=== PATIENT | female | born 1995 | race Caucasian/White ===

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

== ENCOUNTER 2017-04-18 19:21 | Emergency (ER) | payer MEDICAID ==
[2017-04-18 19:44] VITALS: TEMP 99
[2017-04-18] MEDS ORDERED: DEXAMETHASONE 10 MG/ML VIAL IVP ONE (20:01)
[2017-04-18] MEDS ORDERED: METOCLOPRAMIDE 10 MG/2 ML VIAL IVP ONE (20:01)
[2017-04-18] MEDS ORDERED: NS 1,000 ML IV ONE (20:01)
[2017-04-18] MEDS ORDERED: ACETAMINOPHEN 500 MG TAB PO ONE (21:32)
--- NOTE | 2017-04-18 21:36 | EDPHY ---
H & P Stated Complaint: headache for 4 days Time Seen by Provider: 04/18/17 19:46 HPI/ROS: This patient describes a frontal headache of 4 days duration that is described as severe achy and sharp in nature associated with photophobia. She has never had this type headache before. She tried aspirin and Tylenol yesterday without relief and has not tried any medications today. She denies any other associated symptoms. She is accompanied by her father who brought her in by private vehicle for evaluation of her symptoms. ROS: Constitutional: No fevers. No fatigue. No other constitutional complaints HEENT: Chest minimal coryza since this morning but denies any feeling of sinus pressure. No ear pain. No sore throat. Pulmonary: No complaints Cardiovascular: No lightheadedness or other complaints GI: She denies nausea or vomiting. No belly pain. : No complaints new line integumentary: No rash Neuro: No numbness tingling or focal weakness. No confusion. No vision changes. 7 point ROS is otherwise negative. Source: Patient Exam Limitations: No limitations - Personal History Current Tetanus Diphtheria and Acellular Pertussis (TDAP): Yes Tetanus Vaccine Date: 2011 - Medical/Surgical History Hx Asthma: No Hx Chronic Respiratory Disease: No Hx Diabetes: No Hx Cardiac Disease: No Hx Renal Disease: No Hx Cirrhosis: No Hx Alcoholism: No Hx HIV/AIDS: No Hx Splenectomy or Spleen Trauma: No Other PMH: Autistic spectrum disorder, Acid reflux, anxiety, frequent ear infections, ear tubes, asthma - Family History Significant Family History: No pertinent family hx - Social History Smoking Status: Never smoked Alcohol Use: None Drug Use: None - Physical Exam Exam: Physical exam: Vital signs are normal General: Patient is in no acute distress. HEENT: Is no external evidence of trauma on exam. Eyes: Pupils are equal and reactive to light. Extraocular motions are intact. Optic fundi: Clear with no papilledema or hemorrhage. Nose atraumatic. Ears: Clear bilaterally with no hemotympanum. Oropharynx: No dental trauma or malocclusion. No intraoral lacerations. Eyes: Pupils are equal and reactive to light. Extraocular motions are intact. Optic fundi: Clear with no papilledema or hemorrhage. Lungs: Clear to auscultation bilaterally Neck: Supple no meningismus. Cardiac: Regular rate and rhythm no murmur gallop or rub. Abdomen: Soft nontender no organomegaly Neuro: GCS of 15. Cranial nerves II through XII intact. Cerebellar exam is normal as judged by symmetric rapid hand movements bilaterally. No pronator drift. No sensory or motor deficits are appreciated. Initial differential diagnosis: Migraine, tension headache, [employer] lesion, intracranial bleed Constitutional: Initial Vital Signs Temperature (C) 37.2 C 04/18/17 19:35 Heart Rate 107 H 04/18/17 19:35 Respiratory Rate 20 04/18/17 19:35 Blood Pressure 126/88 H 04/18/17 19:35 O2 Sat (%) 97 04/18/17 19:35 O2 Delivery Mode Room Air Allergies/Adverse Reactions: aspirin Allergy (Severe, Verified 04/18/17 19:34) Swelling/neck,face,throat ibuprofen Allergy (Severe, Verified 04/18/17 19:34) Swelling/neck,face,throat venom-honey bee [bee venom (honey bee)] Allergy (Intermediate, Verified 19:34) Other-Enter Comments Home Medications: Medication Instructions Recorded SUMAtriptan [Imitrex 50 MG (RX)] 50 - 100 mg PO Q2H PRN #6 tab 04/18/17 Medical Decision Making ED Course/Re-evaluation: A noted the patient's NSAID allergy IV is placed Normal saline bolus Reglan and Benadryl IV, Tylenol p.o. With marked improvement in her headache down to mild intensity. Discussion: Given patient's significant improvement with migraine medications long with the nature of her symptoms think it is likely that she had a migraine type headache though she has not had enough prior headaches to formally diagnosed her is migraine. Acute counseled her and her father regarding this. Time discharge she is comfortable. Will tx this pt. with a trial of Imitrex. She will follow up with Neurology for further evaluation. She understands need to return should she have any significant worsening despite treatment plan - Data Points Medications Given: Discontinued Medications Acetaminophen (Tylenol) 1,000 mg PO EDNOW ONE Stop: 04/18/17 21:33 Last Admin: 04/18/17 21:41 Dose: 1,000 mg Dexamethasone (Decadron Injection) 10 mg IVP EDNOW ONE Stop: 04/18/17 20:02 Last Admin: 04/18/17 20:19 Dose: 10 mg Diphenhydramine HCl (Benadryl Injection) 25 mg IVP EDNOW ONE Stop: 04/18/17 20:02 Last Admin: 04/18/17 20:17 Dose: 25 mg Sodium Chloride (Ns) 1,000 mls @ 0 mls/hr IV ONCE ONE; Wide Open PRN Reason: Protocol Stop: 04/18/17 20:02 Last Admin: 04/18/17 20:20 Dose: 1,000 mls Metoclopramide HCl (Reglan Injection) 10 mg IVP EDNOW ONE Stop: 04/18/17 20:02 Last Admin: 04/18/17 20:18 Dose: 10 mg Sumatriptan Succinate (Imitrex) 50 mg PO EDNOW ONE Stop: 04/18/17 21:48 Last Admin: 04/18/17 21:57 Dose: Not Given Departure - Departure Disposition: Home, Routine, Self-Care Clinical Impression: Acute headache Qualifiers: Headache type: unspecified Intractability: not intractable Qualified Code(s): R51 - Headache Condition: Good Instructions: Migraine Headache (ED) Additional Instructions: Diagnosis: Acute headache Your headache is migraine-like. Official migraine diagnosis requires more episodes to establish pattern. Plan: She have a recurrent headache, take Tylenol, Imitrex and find quite place to rest. Follow-up with primary care physician. Follow up with neurologist for further evaluation for any ongoing headaches Return to the emergency department for any significant worsening despite treatment plan Referrals: JIN DAVIES [Other] - As per Instructions Brandon Smiley MD [Medical Doctor] - As per Instructions Prescriptions: SUMAtriptan [Imitrex 50 MG (RX)] 50 - 100 mg PO Q2H PRN #6 tab PRN Reason: migraine
[2017-04-18] MEDS ORDERED: SUMAtriptan 50 MG TAB PO ONE (21:47)
[2017-04-18 22:46] VITALS: BP 122/84; PULSE 96; RESP 18; O2SAT 96
== END 2017-04-18 21:50 | disposition home or self-care (01) ==
LOC: CED 19:21
DX: R51 Headache (principal); J45.909 Unspecified asthma, uncomplicated; E86.9 Volume depletion, unspecified
CPT/HCPCS: 96374; J1100; J1200; J2765

== ENCOUNTER 2017-04-29 20:00 | Emergency (ER) | payer MEDICAID ==
[2017-04-29 20:12] VITALS: BP 130/83; PULSE 110; RESP 20; TEMP 98.4; O2SAT 97
[2017-04-29] MEDS ORDERED: diphenhydrAMINE 25 MG CAP PO ONE (20:23)
[2017-04-29] MEDS ORDERED: FAMOTIDINE 20 MG TAB PO ONE (20:40)
[2017-04-29] MEDS ORDERED: ONDANSETRON DISINTEGRATING 4 MG TAB PO ONE (20:41)
--- NOTE | 2017-04-29 20:49 | EDPHY ---
H & P Time Seen by Provider: 04/29/17 20:34 HPI/ROS: This patient complains of an itchy red rash to her face that started at 4:15 a.m. Today. She also describes slight nausea without other symptoms. The patient takes melatonin at night for sleep but no other supplements or other obvious potential allergen exposure recently. She has not taken any medications for her rash. Her father brought her in by private vehicle for evaluation of the symptoms. She notes no clear exacerbating or alleviating factors. ROS: Constitutional: No fevers or chills. No other complaints HEENT: No URI symptoms. Pulmonary: No shortness of breath or wheeze. Cardiovascular: No heart palpitations or lightheadedness. GI: No abdominal pain. No vomiting. No diarrhea. : No complaints integumentary: No rash other than the rash on her face. No intraoral lesions 7 point ROS is otherwise negative. Past Medical/Surgical History: Migraines High functioning autistic spectrum GERD Smoking Status: Never smoked Physical Exam: General Appearance: Alert, no distress. Eyes: Pupils equal and round no pallor or injection. ENT, Mouth: Mucous membranes moist. No angioedema. No intraoral lesions. Respiratory: There are no retractions, lungs are clear to auscultation. Cardiovascular: Regular rate and rhythm. Gastrointestinal: Abdomen is soft and nontender, no masses, bowel sounds normal. Neurological: GCS 15 Skin: She has an erythematous papular rash or face that ingrid easily with pressure is symmetric bilaterally. Musculoskeletal: Neck is supple nontender. Extremities are symmetrical, full range of motion. Psychiatric: Mood and affect are normal DIFFERENTIAL DIAGNOSIS: After history and physical exam differential diagnosis was considered for allergic urticaria, doubt lupus rash, contact dermatitis Constitutional: Initial Vital Signs Temperature (C) 36.9 C 04/29/17 20:07 Heart Rate 110 H 04/29/17 20:07 Respiratory Rate 20 04/29/17 20:07 Blood Pressure 130/83 H 04/29/17 20:07 O2 Sat (%) 97 04/29/17 20:07 O2 Delivery Mode Room Air Allergies/Adverse Reactions: aspirin Allergy (Severe, Verified 04/18/17 19:34) Swelling/neck,face,throat ibuprofen Allergy (Severe, Verified 04/18/17 19:34) Swelling/neck,face,throat venom-honey bee [bee venom (honey bee)] Allergy (Intermediate, Verified 19:34) Other-Enter Comments Home Medications: Medication Instructions Recorded SUMAtriptan [Imitrex 50 MG (RX)] 50 - 100 mg PO Q2H PRN #6 tab 04/18/17 Depo-Provera 150 mg/ml (*) 04/29/17 Ondansetron Odt [Zofran Odt] 4 - 8 mg PO Q4PRN PRN #4 tab 04/29/17 MDM/Departure - MDM Medications Given: Discontinued Medications Diphenhydramine HCl (Benadryl) 25 mg PO EDNOW ONE Stop: 04/29/17 20:24 Last Admin: 04/29/17 20:27 Dose: 25 mg Famotidine (Pepcid) 40 mg PO EDNOW ONE Stop: 04/29/17 20:41 Last Admin: 04/29/17 20:44 Dose: 40 mg Ondansetron HCl (Zofran Odt) 4 mg PO EDNOW ONE Stop: 04/29/17 20:42 Last Admin: 04/29/17 20:44 Dose: 4 mg ED Course/Re-evaluation: Benadryl and Pepcid p. O.. I counseled patient and father regarding allergic urticaria. She does not have evidence of anaphylaxis or other"red flag findings". She will follow up with her primary care physician and/or Dr. Quiñones-peeler operator for any ongoing symptoms. She understands need to return emergency department for any significant worsening despite treatment plan. - Depart Disposition: Home, Routine, Self-Care Clinical Impression: Allergic urticaria Condition: Good Instructions: Urticaria (ED) Additional Instructions: Diagnosis: Allergic urticaria Plan: Weljfoky-[id number] mg per 6 hr as needed for itching or rash Pepcid 40 mg daily Zofran if needed for nausea or vomiting Follow up with Dr. Quiñones-peeler operator for further testing. Avoid pears Return for any significant worsening despite treatment plan Prescriptions: Ondansetron Odt [Zofran Odt] 4 - 8 mg PO Q4PRN PRN #4 tab PRN Reason: Vomiting Referrals: [facility],CAMPASINA [Other] - As per Instructions Harman QUIÑONES [Medical Doctor] - As per Instructions
== END 2017-04-29 20:55 | disposition home or self-care (01) ==
LOC: CED 20:00
DX: L50.0 Allergic urticaria (principal)

== ENCOUNTER 2017-08-13 15:11 | Emergency (ER) | payer MEDICAID ==
[2017-08-13] MEDS ORDERED: FAMOTIDINE 20 MG/2 ML SDV IVP ONE (15:18)
[2017-08-13] MEDS ORDERED: NS 1,000 ML IV ONE (15:18)
[2017-08-13] MEDS ORDERED: methylPREDNISolone SOD SUCC 125 MG/2 ML VIAL IVP ONE (15:18)
--- NOTE | 2017-08-13 15:19 | EDPHY ---
H & P Time Seen by Provider: 08/13/17 15:13 HPI/ROS: 21 yo F presents with slight swelling and redness to face and itching around eyes, no difficulty swallowing, no resp distress, no wheezing. Pt and parent state it began about 30 minutes after taking excedrin migraine, and then they realized it has aspirin in it and that she may be allergic to aspirin. Review of systems As per HPI General no fever no chills no weakness HEENT no eye pain no eye discharge. No eye redness, no sore throat Respiratory no cough, no shortness of breath Cardiac no chest pain, no peripheral edema GI no abdominal pain, no diarrhea, no constipation, no nausea, no vomiting no flank pain, no hematuria, no dysuria Musculoskeletal no myalgias, no joint pain Heme no easy bruising, no easy bleeding Endo no polyuria, no polydipsia Skin positive rashes, no pruritus Neuro no syncope, no dizziness, no headaches Psych is no suicidal ideation, no homicidal ideation Source: Patient, Family Exam Limitations: Other (autism) - Personal History Current Tetanus/Diphtheria Vaccine: Yes Tetanus Vaccine Date: 2011 - Medical/Surgical History Hx Asthma: No Hx Chronic Respiratory Disease: No Hx Diabetes: No Hx Cardiac Disease: No Hx Renal Disease: No Hx Cirrhosis: No Hx Alcoholism: No Hx HIV/AIDS: No Hx Splenectomy or Spleen Trauma: No Other PMH: Autistic spectrum disorder, Acid reflux, anxiety, frequent ear infections, ear tubes, asthma - Family History Significant Family History: No pertinent family hx - Social History Smoking Status: Never smoked Alcohol Use: None Drug Use: None - Physical Exam Exam: 21 yo F alert and oriented in nad no resp distress HEENT atraumatic normocephalic, extraocular muscles intact, anicteric Oropharynx negative for erythema negative exudate, tolerating her own secretions no uvular edema Neck supple no meningismus, no stridor Lungs clear to auscultation bilaterally, no wheezing Heart regular rate and rhythm without murmur rub or gallop Abdomen nondistended normoactive bowel sounds soft nontender Back no CVA tenderness, no step-offs, no spinal tenderness Extremities no cyanosis clubbing or edema Neuro alert and oriented, no focal deficits skin mild erythema and swelling periorbitally and face no lip swelling no uvular swelling Constitutional: Initial Vital Signs Temperature (C) 36.3 C 08/13/17 15:16 Heart Rate 116 H 08/13/17 15:16 Respiratory Rate 18 08/13/17 15:16 Blood Pressure 146/102 H 08/13/17 15:16 O2 Sat (%) 97 08/13/17 15:16 O2 Delivery Mode Room Air Allergies/Adverse Reactions: aspirin Allergy (Severe, Verified 08/13/17 15:19) Swelling/neck,face,throat ibuprofen Allergy (Severe, Verified 08/13/17 15:19) Swelling/neck,face,throat venom-honey bee [bee venom (honey bee)] Allergy (Intermediate, Verified 15:19) Other-Enter Comments Home Medications: Medication Instructions Recorded Depo-Provera 150 mg/ml (*) 04/29/17 Famotidine [Pepcid] 20 mg PO BID 4 Days #8 tablet 08/13/17 predniSONE 40 mg PO DAILY 4 Days tab 08/13/17 Medical Decision Making ED Course/Re-evaluation: Patient seen and evaluated for allergic reaction to likely secondary to aspirin IV established Patient given diphenhydramine 25 mg IV push, famotidine 20 mg IV push, Solu- Medrol 125 mg IV push. Patient had taken 25 mg Benadryl prior to arrival Patient observed for approximately 90 min with marked improvement of erythema, swelling and symptoms. Impression Allergic reaction Plan Discharge home Education regarding avoiding all nonsteroidal anti-inflammatory drugs such as aspirin, ibuprofen, Aleve, Advil, Motrin, Advil, naproxen And of course all aspirin products Follow-up with primary care physician Recommend diphenhydramine Q 6 hr for 1st 24 hr post exposure, famotidine 20 mg p. O. Twice daily x4 days, prednisone 40 mg p.o. Daily x4 days beginning tomorrow Differential Diagnosis: Differential diagnosis considered but not limited to: Allergic reaction, cellulitis - Data Points Medications Given: Discontinued Medications Diphenhydramine HCl (Benadryl Injection) 25 mg IVP EDNOW ONE Stop: 08/13/17 15:19 Last Admin: 08/13/17 15:32 Dose: 25 mg Famotidine (Pepcid) 20 mg IVP EDNOW ONE Stop: 08/13/17 15:19 Last Admin: 08/13/17 15:33 Dose: 20 mg Sodium Chloride (Ns) 1,000 mls @ 0 mls/hr IV ONCE ONE PRN Reason: Wide Open Stop: 08/13/17 15:19 Last Admin: 08/13/17 15:29 Dose: 1,000 mls Methylprednisolone Sodium Succinate (Solu-Medrol) 125 mg IVP EDNOW ONE Stop: 08/13/17 15:19 Last Admin: 08/13/17 15:33 Dose: 125 mg Departure - Departure Disposition: Home, Routine, Self-Care Clinical Impression: Allergic reaction Condition: Good Instructions: General Allergic Reaction (ED) Additional Instructions: 1) Avoid all aspirin or non steroidal antiiflammatory medicines like ibuprofen, naproxen, advil, motrin, alleve 2) Diphenhydramine or Benadryl every 6 hours for first 24 hours after exposure for any hives, itching or swelling 3) No hot showers, baths, or heat exposure for the next 24 hours 4) Prednisone once a day for 4 days 5) Famotidine twice a day for 4 days 6) Follow up with you primary care Referrals: LAUREN DAVIES [Other] - As per Instructions Prescriptions: Famotidine [Pepcid] 20 mg PO BID 4 Days #8 tablet predniSONE 40 mg PO DAILY 4 Days tab
[2017-08-13 16:38] VITALS: BP 133/79
== END 2017-08-13 17:04 | disposition home or self-care (01) ==
LOC: CED 15:11
DX: T78.40XA Allergy, unspecified, initial encounter (principal)
CPT/HCPCS: 96374; J1200; J2930

== ENCOUNTER 2017-11-09 13:39 | Emergency (ER) | payer OTHER, MEDICAID ==
--- NOTE | 2017-11-09 14:14 | EDPHY ---
H & P Smoking Status: Never smoked Time Seen by Provider: 11/09/17 14:08 HPI/ROS: Chief complaint. Headache HPI. Patient presents with 4 day frontal headache. Gradual onset and not thunderclap. It is not associated with nausea and vomiting. She has had similar symptoms previously successfully treated with Reglan and Benadryl and Tylenol. She is allergic to aspirin and ibuprofen which causes facial swelling. She also has slight sore throat. No fever. No chest discomfort or trouble breathing. No cough. No recent head injury. Symptoms are similar to her previous headache in March 2017. She tells me she does get frequent headaches and generally is able to treat these with Tylenol. ROS 10 systems were reviewed and negative with the exception of the elements mentioned in the history of present illness (Tyrone Newton) Past Medical/Surgical History: A to stick spectrum disorder, GERD, anxiety frequent ear infections, asthma, migraines (Tyrone Newton) Social History: Single, nonsmoker, no alcohol (Tyrone Newton) Physical Exam: General Appearance: Alert well-developed female mild distress vital signs are stable. Eyes: Pupils equal and round no pallor or injection. ENT, tympanic membranes are normal. Pharynx slightly injected without exudate or evidence of peritonsillar abscess. Respiratory: There are no retractions, lungs are clear to auscultation. Cardiovascular: Regular rate and rhythm. Gastrointestinal: Abdomen is soft and nontender, no masses, bowel sounds normal. Neurological: Awake and alert, sensory and motor exams grossly normal. Skin: Warm and dry, no rashes. Musculoskeletal: Neck is supple nontender. Extremities symmetrical, full range of motion. Psychiatric: Patient is oriented X 3, there is no agitation. (Tyrone Newton) Constitutional: Initial Vital Signs Temperature (C) 37.3 C 11/09/17 13:48 Heart Rate 93 11/09/17 13:48 Respiratory Rate 16 11/09/17 13:48 Blood Pressure 109/90 H 11/09/17 13:48 O2 Sat (%) 98 11/09/17 13:48 O2 Delivery Mode Room Air Allergies/Adverse Reactions: aspirin Allergy (Severe, Verified 08/13/17 15:19) Swelling/neck,face,throat ibuprofen Allergy (Severe, Verified 08/13/17 15:19) Swelling/neck,face,throat venom-honey bee [bee venom (honey bee)] Allergy (Intermediate, Verified 15:19) Other-Enter Comments Home Medications: Medication Instructions Recorded Depo-Provera 150 mg/ml (*) 04/29/17 Famotidine [Pepcid] 20 mg PO BID 4 Days #8 tablet 08/13/17 predniSONE 40 mg PO DAILY 4 Days tab 08/13/17 Ondansetron Odt [Zofran Odt] 4 - 8 mg PO Q4PRN PRN #4 tab 11/09/17 SUMAtriptan [Imitrex 50 MG (RX)] 50 - 100 mg PO Q2H PRN #6 tab 11/09/17 Medical Decision Making Procedures: IV normal saline. Reglan and Benadryl IV. Tylenol by mouth (Tyrone Newton) ED Course/Re-evaluation: At 3:50 p.m. The patient feels improved after medications with headache down to 3 or 4/10. She still however has mild to moderate nausea that persists. Repeat examination-patient is no distress. Neuro: GCS 15 with no focal deficits. Eyes: Pupils equal react to light extraocular is intact optic fundi are normal bilaterally Discussion: Patient presents with migraine type headache improved with treatment without any red flag findings that suggest [employer] infection, intracranial bleed or other concerning findings. Patient understands need to return emergency department should she develop significant worsening despite treatment plan of ibuprofen, Tylenol, Zofran Imitrex (Mike Pedraza) - Data Points Medications Given: Discontinued Medications Acetaminophen (Tylenol) 1,000 mg PO EDNOW ONE Stop: 11/09/17 14:22 Last Admin: 11/09/17 14:43 Dose: 1,000 mg Diphenhydramine HCl (Benadryl Injection) 25 mg IVP EDNOW ONE Stop: 11/09/17 14:21 Last Admin: 11/09/17 14:48 Dose: 25 mg Metoclopramide HCl (Reglan Injection) 10 mg IVP EDNOW ONE Stop: 11/09/17 14:21 Last Admin: 11/09/17 14:45 Dose: 10 mg Departure - Departure Disposition: Home, Routine, Self-Care Clinical Impression: Migraine Qualifiers: Migraine type: unspecified Status migrainosus presence: with status migrainosus Intractability: not intractable Qualified Code(s): G43.901 - Migraine, unspecified, not intractable, with status migrainosus Vomiting Qualifiers: Vomiting type: unspecified Vomiting Intractability: non-intractable Nausea presence: with nausea Qualified Code(s): R11.2 - Nausea with vomiting, unspecified Condition: Good Instructions: Migraine Headache (ED), Acute Nausea and Vomiting (ED) Additional Instructions: Diagnosis: Migraine headache 2. Vomiting Plan: Drink plenty fluids Light diet to feel improved Zofran for nausea vomiting Ibuprofen, and Tylenol for headache. Imitrex in addition if needed. Follow up with your primary care physician at [facility] Return for any significant worsening despite the treatment plan. Referrals: JIN DAVIES [Other] - As per Instructions
[2017-11-09] MEDS ORDERED: METOCLOPRAMIDE 10 MG/2 ML VIAL IVP ONE (14:20)
[2017-11-09] MEDS ORDERED: ACETAMINOPHEN 500 MG TAB PO ONE (14:21)
[2017-11-09] MEDS ORDERED: ONDANSETRON 4 MG/2 ML VIAL IVP ONE (15:50)
[2017-11-09 16:33] VITALS: BP 120/83
== END 2017-11-09 16:19 | disposition home or self-care (01) ==
LOC: CED 13:39
DX: G43.901 Migraine, unspecified, not intractable, with status migrainosus (principal); R11.2 Nausea with vomiting, unspecified
CPT/HCPCS: 96374; 96375; 99284; J1200; J2765; J2405

== ENCOUNTER 2018-03-30 16:59 | Emergency (ER) | payer OTHER, MEDICAID ==
[2018-03-30] MEDS ORDERED: NS 1,000 ML IV ONE (17:39)
--- NOTE | 2018-03-30 19:29 | EDPHY ---
H & P Stated Complaint: PT. states abd pain since yesterday 1530,nausea,diarrhea 2 days ago Time Seen by Provider: 03/30/18 17:15 HPI/ROS: CHIEF COMPLAINT: Abdominal pain, black stools History by patient HISTORY OF PRESENT ILLNESS: 22-year-old otherwise healthy woman presents complaining of 2 days of epigastric and periumbilical pain. Symptoms began with some diarrhea yesterday. For this she took Pepto-Bismol. Today she noticed black stools. She has had some nausea but no vomiting and she has had a decreased appetite, the food does not necessarily make her symptoms worse. She denies any fever. She denies . She has the Depo shot, and has been on time for this. She denies any dysuria, urgency frequency or hematuria. She denies any back pain. She also notes she is under lots of stress because her family is getting kicked out of there house. She does state she has had similar symptoms in the past. REVIEW OF SYSTEMS: As in HPI, and all other systems reviewed and are negative Source: Patient, Family - Personal History LMP (Females 10-55): Extended Cycle BCP/Inj Tetanus Vaccine Date: 2011 - Medical/Surgical History Hx Asthma: Yes Hx Chronic Respiratory Disease: No Hx Diabetes: No Hx Cardiac Disease: No Hx Renal Disease: No Hx Cirrhosis: No Hx Alcoholism: No Hx HIV/AIDS: No Hx Splenectomy or Spleen Trauma: No Other PMH: Autistic spectrum disorder, Acid reflux, anxiety, frequent ear infections, ear tubes, asthma, migraines - Social History Smoking Status: Never smoked - Physical Exam Exam: General Appearance: Alert, obese, nontoxic-appearing. Eyes: Pupils equal and round, extraocular movements intact, no pallor or injection. Mouth: Mucous membranes moist. Pharynx clear Respiratory: Normal, effort, lungs are clear to auscultation. No wheezes, rales or rhonchi. Cardiovascular: Regular rate and rhythm. S1, S2, no murmurs, gallops or rubs appreciated Gastrointestinal: bowel sounds present, Abdomen is soft and nondistended, mild right lower quadrant tenderness, no rebound or guarding, no masses Back: No CVA tenderness, no bony tenderness Neurological: Awake, alert and oriented x 3, no pronator drift, normal gait, no pronator drift Skin: Warm and dry, no rashes. Musculoskeletal: No deformities or tenderness. Extremities: full range of motion, no edema Psychiatric: Patient has normal affect, there is no agitation. Constitutional: Initial Vital Signs Temperature (C) 36.9 C 03/30/18 17:05 Heart Rate 102 H 03/30/18 17:05 Respiratory Rate 16 03/30/18 17:05 Blood Pressure 135/84 H 03/30/18 17:05 O2 Sat (%) 98 03/30/18 17:05 O2 Delivery Mode Room Air Allergies/Adverse Reactions: aspirin Allergy (Severe, Verified 03/30/18 17:04) Swelling/neck,face,throat ibuprofen Allergy (Severe, Verified 03/30/18 17:04) Swelling/neck,face,throat venom-honey bee [bee venom (honey bee)] Allergy (Intermediate, Verified 17:04) Other-Enter Comments Home Medications: Medication Instructions Recorded Depo-Provera 150 mg/ml (*) 04/29/17 Medical Decision Making - Diagnostics Imaging Results: Imaging Impressions Abdomen Ultrasound 03/30/18 18:32 Impression: Nondiagnostic assessment of the appendix. If there is further clinical concern regarding the patient's right lower quadrant pain, contrast-enhanced CT imaging could be considered. Results were called to the ED (éCsar) who will convey the information to Key Ag MD at 19:19, on 03/30/2018. ED Course/Re-evaluation: 22-year-old presents with epigastric/periumbilical pain and concerned about black stools. Patient has some mild right lower quadrant tenderness on exam. Labs are notable for an elevated white blood cell count but no evidence of anemia. Stool occult blood is negative. There is no evidence of GI bleed. Appendicitis is on the differential this patient. Ultrasound was obtained which did not visualize her appendix but showed no secondary signs of appendicitis. On re-evaluation the patient was feeling slightly better and was also feeling hungry. She was able to tolerate crackers and juice. I discussed with the patient and her father how we cannot rule out appendicitis but my suspicion for this is low. I am recommending a recheck in 24 hr and sooner if worse. We discussed return precautions with patient and her father. - Data Points Laboratory Results: 03/30/18 18:26 POC Sodium 142 mEq/L mEq/L (135-145) POC Potassium 3.9 mEq/L mEq/L (3.3-5.0) POC Chloride 107.0 mEq/L mEq/L (97-110) POC Total CO2 24 mEq/L mEq/L (22-31) POC BUN 9 mg/dL mg/dL (7-23) POC Creatinine 0.6 mg/dL mg/dL (0.6-1.0) POC Glucose 104 mg/dL H mg/dL (70-100) POC Calcium 10.0 mg/dL mg/dL (8.5-10.4) Medications Given: Discontinued Medications Sodium Chloride (Ns) 1,000 mls @ 0 mls/hr IV EDNOW ONE; Wide Open PRN Reason: Protocol Stop: 03/30/18 17:40 Last Admin: 03/30/18 18:15 Dose: 1,000 mls Point of Care Test Results: CBC CBC Collection Date 03/30/18 CBC Collection Time 17:58 WBC 12.36 RBC 5.59 HGB 15.5 HCT 46.9 PLT 393 Neut # 7.14 Neut 57.7 LYMPH # 3.95 LYMPH 32.0 MCV 83.9 Chemistry 03/30/18 18:26 POC Sodium 142 mEq/L mEq/L (135-145) POC Potassium 3.9 mEq/L mEq/L (3.3-5.0) POC Chloride 107.0 mEq/L mEq/L (97-110) POC Total CO2 24 mEq/L mEq/L (22-31) POC BUN 9 mg/dL mg/dL (7-23) POC Creatinine 0.6 mg/dL mg/dL (0.6-1.0) POC Glucose 104 mg/dL H mg/dL (70-100) POC Calcium 10.0 mg/dL mg/dL (8.5-10.4) Occult Blood Occult Blood Collection Date 03/30/18 Occult Blood Collection Time 18:35 Occult Blood Result Negative/Negative Departure - Departure Disposition: Home, Routine, Self-Care Clinical Impression: Abdominal pain Qualifiers: Abdominal location: epigastric Qualified Code(s): R10.13 - Epigastric pain Condition: Good Instructions: Acute Abdominal Pain (ED) Additional Instructions: You were seen by Dr. Key Ag today. The cause of your abdominal plain is unclear. There is no evidence of internal gastrointestinal bleeding. The ultrasound did not show your appendix. We cannot rule out acute appendicitis. Please see your primary care physician at [facility] or return to the ER tomorrow for recheck if her symptoms persist. Return sooner if you get worse including a fever, worse pain or nausea or vomiting or inability to eat. Return for any worsening or new concerns. Referrals: SAMSON ABDI [Other] - As per Instructions
[2018-03-30 20:14] VITALS: BP 127/82
== END 2018-03-30 20:11 | disposition home or self-care (01) ==
LOC: CED 16:59
DX: R10.13 Epigastric pain (principal); R19.5 Other fecal abnormalities; E86.9 Volume depletion, unspecified
CPT/HCPCS: 76705-PO; 80048-ER; 96360-ER

== ENCOUNTER 2018-04-18 20:18 | Emergency (ER) | payer OTHER, MEDICAID ==
[2018-04-18] MEDS ORDERED: ACETAMINOPHEN 500 MG TAB ONE (20:52)
--- NOTE | 2018-04-18 20:57 | EDPHY ---
H & P Time Seen by Provider: 04/18/18 20:22 HPI/ROS: This patient complains of left flank pain moderate intensity started this evening. She also reports nasal congestion over the past 2 days and mild myalgias. She is accompanied by her boyfriend who brought her in for evaluation by private vehicle. She denies any other complaints except that she had left leg pain earlier in the day that is now resolved. She points to an area to the lateral leg proximal to the lateral malleolus by 10 cm and describing this. She denies any acute injuries. ROS: Constitutional: No high fevers HEENT: Nasal congestion but no sinus pain. No ear pain. No sore throat. No tongue pain Pulmonary: No cough Cardiovascular: No lightheadedness or lower extremity swelling GI: No abdominal pain, nausea or vomiting : She denies any acute symptoms other than flank pain that she thinks maybe her kidney Integumentary: No rash 7 point review of symptoms is performed and otherwise negative with exception of pertinent positives and negatives listed in HPI and ROS Smoking Status: Never smoked Physical Exam: General Appearance: Alert, no distress. Eyes: Pupils equal and round no pallor or injection. ENT, Mouth: Mucous membranes moist. Nose clear discharge. No sinus tenderness to percussion. Ears are clear bilaterally with normal external canals and TMs bilaterally. Oropharynx: Geographic tongue but no acute vesicular lesions erythema erosions or posterior pharyngeal erythema. No dysphonia. Respiratory: There are no retractions, lungs are clear to auscultation. Cardiovascular: Regular rate and rhythm. Gastrointestinal: Abdomen is soft and nontender, no masses, bowel sounds normal. Neurological: Alert orient x3 with no focal deficits appreciated. Skin: Warm and dry, no rashes. Musculoskeletal: Neck is supple nontender. Extremities are symmetrical, full range of motion. At the moment she has no left lower extremity swelling or tenderness. Psychiatric: Mood and affect are normal DIFFERENTIAL DIAGNOSIS: After history and physical exam differential diagnosis was considered for UTI, viral URI, muscle strain Constitutional: Initial Vital Signs Temperature (C) 36.6 C 04/18/18 20:30 Heart Rate 101 H 04/18/18 20:30 Respiratory Rate 20 04/18/18 20:30 Blood Pressure 121/62 H 04/18/18 20:30 O2 Sat (%) 96 04/18/18 20:30 O2 Delivery Mode Room Air Allergies/Adverse Reactions: aspirin Allergy (Severe, Verified 03/30/18 17:04) Swelling/neck,face,throat ibuprofen Allergy (Severe, Verified 03/30/18 17:04) Swelling/neck,face,throat venom-honey bee [bee venom (honey bee)] Allergy (Intermediate, Verified 17:04) Other-Enter Comments Home Medications: Medication Instructions Recorded Depo-Provera 150 mg/ml (*) 04/29/17 Cephalexin [Keflex (*)] 500 mg PO TID #21 cap 04/18/18 traMADol [Ultram 50 mg (*)] 50 mg PO Q6 PRN #12 tab 04/18/18 MDM/Departure - MDM Diagnostics: POC urine dip showed 1+ leuks sent over for urine micro with 50-182 white cells and bacteria. Urine is negative Discussion: Patient presents with myalgias, left flank pain without other urinary symptoms but findings consistent with UTI, specifically early pyelonephritis without vomiting or other complications without clinical evidence of sepsis. Will treat her with Keflex 1st dose given here tramadol in addition to the Tylenol for pain control. She understands need to return should she develop worsening symptoms despite treatment plan. - Depart Disposition: Home, Routine, Self-Care Clinical Impression: Urinary tract infection Qualifiers: Urinary tract infection type: acute pyelonephritis Qualified Code(s): N10 - Acute pyelonephritis Condition: Good Instructions: Urinary Tract Infection in Women (ED) Additional Instructions: Diagnosis: Urinary tract infection Plan: Drink plenty fluids Tylenol for pain Tramadol in addition if needed for pain. No driving, alcohol or work on tramadol Keflex antibiotic for the next week Follow-up with primary care physician for any ongoing symptoms despite treatment plan. Return for any significant worsening despite the treatment plan Prescriptions: Cephalexin [Keflex (*)] 500 mg PO TID #21 cap traMADol [Ultram 50 mg (*)] 50 mg PO Q6 PRN #12 tab PRN Reason: Pain, Breakthrough Referrals: [facility] [Other] - As per Instructions
[2018-04-18] MEDS ORDERED: CEPHALEXIN 500 MG CAP PO ONE (21:48)
[2018-04-18] MEDS ORDERED: traMADol 50 MG TAB PO ONE (22:00)
[2018-04-18 22:14] VITALS: BP 130/62
== END 2018-04-18 22:12 | disposition home or self-care (01) ==
LOC: CED 20:18
DX: N10 Acute pyelonephritis (principal)
CPT/HCPCS: 99284-ER